=== PATIENT | female | born 1980 | race Two or more races ===

== ENCOUNTER → 2019-07-18 | Outpatient (CLI) | payer OTHER | END | disposition home or self-care (01) | LOC: LAB 15:53 | PROVIDERS: ATTEND Nurse Practitioner Family | DX: Z20.9 Contact with and (suspected) exposure to unspecified communicable disease (principal) | CPT/HCPCS: 86765 ==

== ENCOUNTER 2019-07-26 10:16 | Emergency (ER) | payer MEDICAID, OTHER ==
[~2019-07-26] VITALS: Ht 165.1 cm; Wt 95.3 kg
[2019-07-26] MEDS ORDERED: PIPERACILLIN-TAZOB 3.375GM 100 ML IV ONE (11:15)
[2019-07-26] MEDS ORDERED: ONDANSETRON HCL 4 MG/2 ML VIAL IV ONE (11:15)
[2019-07-26] MEDS ORDERED: VANCOMYCIN 1GM/250ML 250 ML IV ONE (11:15)
[2019-07-26] MEDS ORDERED: MORPHINE SULF INJ 2 MG/ML SYRINGE 1ML IV ONE (11:15)
[2019-07-26] MEDS ORDERED: IBUPROFEN 800 MG TAB PO ONE (11:30)
[2019-07-26 11:35] LABS: Basophils # (auto) 0 uL; Basophils % (auto) 0.1 % (0.0-2.0); Eosinophils # (auto) 0 uL; Hematocrit 36.2 % (36.0-46.0); Hemoglobin 12.1 g/dL (12.2-16.2); Lymphocytes # (auto) 0.8 uL; Lymphocytes % (auto) 3.7 % (10.0-50.0); Mean Corpuscular Hemoglobin 28.9 pg (28.0-32.0); Mean Corpuscular Hgb Conc. 33.5 g/dL (32.0-36.0); Mean Corpuscular Volume 86.3 fL (80.0-100.0); Monocytes # (auto) 1.3 uL; Monocytes % (auto) 6.1 % (0.0-12.0); Neutrophils # (auto) 19.2 uL; Neutrophils % (auto) 90.1 % (37.0-80.0); Platelet Count (auto) 210 10^3/uL (140-450); Red Blood Cells 4.19 10^6/uL (4.0-5.20); White Blood Cell 21.3 10^3/uL (4.4-10.8)
[2019-07-26 11:47] LABS: Albumin 3.3 g/dL (3.4-5.0); Calcium 8.5 mg/dL (8.5-10.1)
[2019-07-26 11:52] LABS: BUN/Creatinine Ratio 5.4; Bilirubin, Total 0.5 mg/dL (0.2-1.0); Total Protein 8.3 g/dL (6.4-8.2)
[2019-07-26] MEDS ORDERED: POTASSIUM CHL 20 Meq TABLET PO ONE (13:30)
[2019-07-26 15:51] VITALS: BP 89/44
== END 2019-07-26 17:05 | disposition home or self-care (01) ==
LOC: ER 10:16
DX: L03.113 Cellulitis of right upper limb (principal); E87.6 Hypokalemia
CPT/HCPCS: 36415; 80053; 85025; 87040; 93005; 96365; 96366; 96368; 96375; 99284; J2405; J2543; J3370